=== PATIENT | female | born 1965 | race Caucasian/White ===

== ENCOUNTER → 2022-06-22 14:39 | Outpatient (CLI) | payer OTHER, SELFPAY ==
--- NOTE | ~2022-06-22 | XR_ITS ---
EXAM: XR lumbar spine 2-3V DATE: 06/22/2022 14:53 HISTORY: no injury low back and right leg pain for 3 weeks . COMPARISON: None available. FINDINGS: Cholecystectomy clips. Generally decreased mineralization. Concave endplate deformities as can be seen with osteoporosis. Pelvic phleboliths. 5 nonrib-bearing lumbar-type vertebral bodies. Ped icles intact. 2 mm anterolisthesis at L4-5. Vertebral body heights preserved. Mild lower lumbar facet hypertrophy and sclerosis. Multilevel disc space narrowing and marginal osteophytosis, moderate at L 5-S1. IMPRESSION: Possible osteoporosis, consider bone density scanning. Grade 1 anterolisthesis at L4-5. M oderate degenerative disc disease at L5-S1. Mild lower lumbar facet arthropathy. Reviewed, dictated and finalized at location K. IMPRESSION: Possible osteoporosis, consider bone density scanning. Grade 1 ante rolisthesis at L4-5. Moderate degenerative disc disease at L5-S1. Mild lower sybil mbar facet arthropathy.
== END ==
PROVIDERS: PCP Nurse Practitioner; Visit Provider Nurse Practitioner
DX: M54.16 Radiculopathy, lumbar region (principal); M54.50 Low back pain, unspecified; M43.16 Spondylolisthesis, lumbar region; M51.37 Other intervertebral disc degeneration, lumbosacral region; M12.88 Other specific arthropathies, not elsewhere classified, other specified site
CPT/HCPCS: 72100

== ENCOUNTER 2022-06-23 08:26 | Outpatient (CLI) | payer OTHER, SELFPAY ==
[2022-06-23 20:13] LABS: Glucose 99 mg/dL (65-110)
[2022-06-23 20:26] LABS: Beta-Hydroxybutyrate/Acetoacetate 0.07 mmol/L (0.02-0.27)
[2022-06-25 17:23] LABS: C-Peptide 2.17 ng/mL (0.80-3.85)
[2022-06-26 11:20] LABS: Insulin Level Total 6.2 uIU/mL (<=19.6)
== END 2022-06-23 08:27 | disposition home or self-care (01) ==
LOC: ANHGOSHLAB 08:30
PROVIDERS: PCP Nurse Practitioner; Visit Provider Nurse Practitioner
DX: E16.2 Hypoglycemia, unspecified (principal)
CPT/HCPCS: 36415; 82010; 82947; 83525; 84681